=== PATIENT | female | born 1960 ===

== ENCOUNTER 2022-02-23 05:50 | Day surgery (SDC) | payer OTHER ==
[~2022-02-23 05:50] MED LIST: CYMBALTA20 MG PO; DAFLO PO; FOLIC A PO; GABAP; OMEGA 3 PO; PREVENT PO; SYNTHROID50 MCG; SYNTHROID75 MCG; ZANAFLEX2 M1 PO
[2022-02-23] MEDS ORDERED: PERCOCET 5-3251 EACH PO (11:01)
== END 2022-02-23 15:10 | disposition home or self-care (01) ==
LOC: CIR.AMB 05:50
PROVIDERS: ATTEND Surgery
DX: E21.0 Primary hyperparathyroidism (principal); Z20.822 Contact with and (suspected) exposure to COVID-19; E03.9 Hypothyroidism, unspecified